=== PATIENT | female | born 1935 | race Two or more races ===

== ENCOUNTER 2018-02-11 14:31 | Day surgery (SDC) | payer MEDICARE ==
[~2018-02-11 14:31] MED LIST: ACET325 PO; AMLO10 PO; ASPI325 PO; ATOR40TA PO; CLOP75 PO; Calcium 600-D1 EACH PO; FOLI400 PO; HYDCHL12.5 PO; LATA.005SO BOTHEYES; LEVFLO500 PO; METO100ER PO; METO50 PO; POLY500 PO; POTCHL10ER PO; RAMI5 PO; RANI150 PO
[2018-02-17] MEDS ORDERED: ERGO400 PO (17:17)
[2018-02-17] MEDS ORDERED: FOLI1 PO (17:19)
[2018-02-17] MEDS ORDERED: TRAM50 PO (17:22)
[2018-02-17] MEDS ORDERED: ALBU90OI6 INH (17:24)
[2018-02-17] MEDS ORDERED: ALPR.5 PO (17:25)
[2018-02-17] MEDS ORDERED: STIOLTO RESPIMAT4 GM INH (17:25)
[2018-02-17] MEDS ORDERED: DIAZ5 PO (17:26)
== END 2018-02-11 22:53 | disposition home or self-care (01) ==
LOC: US 14:31
PROC: BW4FZZZ Ultrasonography of Neck (ICD-10-PCS; principal; 2018-02-11)
DX: J90 Pleural effusion, not elsewhere classified (principal); R91.8 Other nonspecific abnormal finding of lung field
CPT/HCPCS: 76604

== ENCOUNTER → 2018-04-15 | Outpatient (CLI) | payer MEDICARE ==
[~2018-04-15] MED LIST changes: +ALBU90OI6 INH; +ALLO300 PO; +ALPR.5 PO; +CLOT10 MT; +COMPAZINE10 MG PO; +DIAZ5 PO; +ERGO400 PO; +FOLI1 PO; +MAALOX PLUS PO; +MAGOXI400 PO; +MIRALAX17 GM PO; +Milk Of Ma400 MG/5 M PO; +PANT40 PO; +STIOLTO RESPIMAT4 GM INH; +TRAM50 PO; +XARELTO10 MG PO
[2018-04-15 10:35] LABS: Alanine Aminotransfer (ALT/SGP 11 U/L (12-78); Albumin/Globulin Ratio 0.9 (0.8-1.8); Alk Phos 88 U/L (50-136); Anion Gap 12 mmol/L (6-16); Aspartate Aminotrans (AST/SGOT 7 U/L (12-37); Bilirubin, Total 0.6 mg/dL (0.1-1.0); Blood Urea Nitrogen 16 mg/dL (8-24); Bun/Creatinine Ratio 23.5 (12.0-20.0); CO2, Blood 28 mmol/L (21-32); Calcium, Blood 9.2 mg/dL (8.5-10.1); Chloride, Blood 94 mmol/L (98-108); Creatinine, Blood 0.68 mg/dL (0.40-1.00); Globulin, Blood 3.4 g/dL (2.2-4.0); Glomerular Filtration Rate >60 (60-); Glucose, Blood 82 mg/dL (70-99); Magnesium, Blood 1.7 mg/dL (1.6-2.4); Potassium, Blood 3.5 mmol/L (3.5-5.5); Sodium, Blood 134 mmol/L (136-145); Total Protein, Blood 6.4 g/dL (6.4-8.2)
== END | disposition home or self-care (01) ==
LOC: LAB SHORT 09:30 → LAB 09:30
PROVIDERS: Internal Medicine Hematology & Oncology
DX: C34.11 Malignant neoplasm of upper lobe, right bronchus or lung (principal)
CPT/HCPCS: 80053; 83735

== ENCOUNTER 2018-04-24 13:40 | Inpatient (IN) | payer MEDICARE ==
[~2018-04-24] VITALS: Ht 154.9 cm; Wt 54.0 kg
[2018-04-24 14:35] LABS: Hematocrit 18.7 % (33.0-51.0); Hemoglobin 6.3 g/dL (11.5-16.0); Mean Corpuscular HGB 32.1 pg (26.0-34.0); Mean Corpuscular HGB Conc 33.7 g/dL (31.5-36.5); Mean Corpuscular Volume 95 fL (80-100); RDW Coefficient Variation 18.7 % (11.7-14.2); RDW Standard Deviation 64.2 fL (35.1-46.3); Red Blood Cell Count 1.96 M/mm3 (3.80-5.20)
[2018-04-24 14:38] LABS: BASOPHILS ABSOLUTE AUTO 0.01 K/mm3 (0.00-0.23); BASOPHILS PERCENT AUTO 4 % (0-2); EOSINOPHILS PERCENT AUTO 0 % (0-6); IMMATURE GRAN PERCENT AUTO 0 % (0-1); LYMPHOCYTES ABSOLUTE AUTO 0.17 K/mm3 (0.84-5.20); LYMPHOCYTES PERCENT AUTO 71 % (21-46); MONOCYTES ABSOLUTE AUTO 0.03 K/mm3 (0.16-1.47); MONOCYTES PERCENT AUTO 13 % (4-13); Mean Platelet Volume 13.9 fL (9.1-12.4); NEUTROPHILS ABSOLUTE AUTO 0.03 K/mm3 (1.96-9.15); NEUTROPHILS PERCENT AUTO 13 % (41-73); Platelet Count 7 K/mm3 (150-400); White Blood Cell Count 0.24 K/mm3 (4.00-11.30)
[2018-04-24 14:57] LABS: Anion Gap 9 mmol/L (6-16); Blood Urea Nitrogen 19 mg/dL (8-24); Bun/Creatinine Ratio 33.7 (12.0-20.0); CO2, Blood 27 mmol/L (21-32); Calcium, Blood 8.7 mg/dL (8.5-10.1); Chloride, Blood 97 mmol/L (98-108); Creatinine, Blood 0.56 mg/dL (0.40-1.00); Glomerular Filtration Rate >60 (60-); Glucose, Blood 121 mg/dL (70-99); Potassium, Blood 3.3 mmol/L (3.5-5.5); Sodium, Blood 133 mmol/L (136-145)
[2018-04-24 15:32] LABS: RETIC HGB EQUIVALENT 39.5 pg (28.20-36.60); RETICULOCYTE ABSOLUTE 0.005 M/mm3 (0.0200-0.1100); RETICULOCYTE COUNT PERCENT 0.25 % (0.50-2.50)
[2018-04-24 15:40] LABS: Percent Saturation 74.6 % (15.0-50.0)
[2018-04-24 23:47] LABS: Source, Urine Catheter
[2018-04-24 23:49] LABS: Blood, Urine 2+ (Neg); Glucose Qualitative, Urine Neg (Neg); Ketones, Urine 3+ (Neg); Leukocyte Esterase, Urine 1+ (Neg); Nitrite, Urine Neg (Neg); Protein, Urine 2+ (Neg); Urobilinogen, Urine 3+ (Normal); pH, Urine 6.5 (5.0-8.0)
[2018-04-24 23:53] LABS: Appearance, Urine Clear (Clear); Bilirubin, Urine 1+ (Neg); Color, Urine Amber (P-Yellow)
[2018-04-25 00:14] LABS: Bacteria Rare /hpf; Red Blood Cells, Urine 0-2 /hpf (0-2); Squamous Epithelial Cells Rare /hpf (Few); White Blood Cells, Urine 0-2 /hpf (0-5); Yeast/Fungi Urine Mod /hpf
--- NOTE | 2018-04-25 00:32 | NUR ---
started shift with a view score of 5 , called hospitalist, recommended continuing with orders to infuse plasma and blood, gave plasma wide open, continued to monitor for s/sx of reaction to blood, got view of 6 called recommended sending to pcu, sent to icu due to accomadations, report given to icu nurse, charge nurse transfered pt to icu bed 11
[2018-04-25 05:28] LABS: Hematocrit 24.6 % (33.0-51.0); Hemoglobin 8.7 g/dL (11.5-16.0); Mean Corpuscular HGB 31.3 pg (26.0-34.0); Mean Corpuscular HGB Conc 35.4 g/dL (31.5-36.5); Mean Platelet Volume 8.7 fL (9.1-12.4); RDW Coefficient Variation 15.9 % (11.7-14.2); RDW Standard Deviation 48.4 fL (35.1-46.3); Red Blood Cell Count 2.78 M/mm3 (3.80-5.20)
[2018-04-25 05:33] LABS: Mean Corpuscular Volume 89 fL (80-100); Platelet Count 38 K/mm3 (150-400)
[2018-04-25 05:34] LABS: White Blood Cell Count 0.08 K/mm3 (4.00-11.30)
[2018-04-25 05:49] LABS: Anion Gap 10 mmol/L (6-16); Blood Urea Nitrogen 22 mg/dL (8-24); Bun/Creatinine Ratio 36.9 (12.0-20.0); CO2, Blood 25 mmol/L (21-32); Chloride, Blood 98 mmol/L (98-108); Glomerular Filtration Rate >60 (60-); Glucose, Blood 129 mg/dL (70-99); Potassium, Blood 3.1 mmol/L (3.5-5.5); Sodium, Blood 133 mmol/L (136-145)
--- NOTE | 2018-04-25 07:30 | NUR ---
HR 140'S AND 150'S, AFIB, BP 108/61, GAVE LOPRESSOR 2.5 MG IVP, HR REDUCED TO 103-120, BP 95/53
--- NOTE | 2018-04-25 07:40 | NUR ---
[id number]: RECIEVED PT FROM MEDICAL UNIT, AWAKE BUT SOMNOLENT. DENIES PAIN, STATES "I'M SO TIRED, I JUST WANT TO SEEP". FIRST UNIT RBCs COMPLETED, SECOND UNIT UP. BP PROGRESSIVELY TRENDING UP. MONITOR SHOWS AFIB W/ VENTRICULAR RATE 130-150. TEMP DOWN THEN 101.7, TYLENOL 650 MG GIVEN.SECOND UNIT RBCs COMPLETED, LAB DELAYED UNTIL AFTER BLOOD COMPLETE. MAINT. IV RESUMED. 0515: STATUS REPORT TO DR THAKKAR, HR, RHYTHM, BP, TEMP, URINE OUT, ORDERS RECIEVED. TYLENOL 325MG GIVEN PO, MANY BLANKETS REMOVED. TEMP DOWN ON RE-ASSESSMENT. HR, RR REMAIN ELEVATED. BP STABLE. 0635: ABNORMAL WBC COUNT, PLT, VS, URINE, CALLED TO DR THAKKAR, NEW ORDERS RECIEVED.
--- NOTE | 2018-04-25 08:50 | NUR ---
LAB AT BEDSIDE.
--- NOTE | 2018-04-25 08:53 | NUR ---
DR. CROWE AT BEDSIDE FOR EVALUATION.
--- NOTE | 2018-04-25 10:59 | NUR ---
NURSING SUMMARY ALERT AND ORIENTED X4. AFIB WITH HR 140'S AND 150'S THIS MORNING, GAVE LOPRESSOR 2.5 MG IVP, RHYTHM REMAINED IN AFIB, HR REDUCED TO 103-120, AND BP HYPOTENSIVE 87/48, ASUMPTOMATIC. CARDIAC RHYTHM NOW IS AFIB, HR 118, BP 100/55. PATIENT SLEEPING FOR LAST TWO HOURS AND WAKES EASILY TO VOICE. SON AND DAUGHTER AT BEDSIDE, HELPFUL. FAMILY WAS ABLE TO ASSIST ME WITH COMPLETING ADMISSION HISTORY. ADMISSION DOCUMENTATION COMPLETED. PT WAS ON A BRAT DIET THAT SHE DID NOT LIKE, CALLED DR. CROWE AND OBTAINED NEW ORDER FOR REGULAR DIET. LUNGS CLEAR, NON-PRODUCTIVE OCCASSIONAL COUGH. ROOM AIR SATS ABOVE 90%. OH IN PLACE WITH LOW OUTPUT OF AMANDA COLORED URINE. D5 WITH 20K INFUSING AT 100 ML/HR. GAVE MAGNESIUM REPLACEMENT FOR MG = 1.2. GAVE KDUR 20MEQS PO FOR K=3.1, PLUS INFUSING D5 1/2 W/KCL 20 MEQS AT 100 ML/HR. STARTED ON MERREM AND VANCOMYCIN, FIRST DOSES GIVEN OF BOTH ANTIBIOTICS. BRUISE TO LEFT ARM/WRIST FROM FALL AT HOME. INSTRUCTED RE: FALL PRECAUTIONS, USE OF THE CALL LIGHT SYSTEM, AND ALWAYS CALLING NURSING FOR ASSISTANCE OUT OF BED. NEUTROPENIC PRECAUTIONS, WBS 0.08 AND PLATELETS AT 38. RIGHT WRIST 20G INFUSING D5 1/2 NS WITH 20K.
--- NOTE | 2018-04-25 13:00 | NUR ---
CALLED DR. CROWE RE: AFIB, HR 140'S, TOO EARLY TO GIVE IVP LOPRESSOR, BP 90'S/40'S, NEW ORDER FOR TOPROL 12.5 MG PO, DR. CROWE ADVISED ME TO GO AHEAD AND GIVE THE TOPROL WITH BP'S 90'S/47'S. ONCE I WENT INTO THE ROOM TO GIVE THE TOPROL RECHECKED BP'S, RUNNING 70'S/40'S AFTER REPOSITIONING PT TO RIGHT SIDE IN BED. REPOSITIONED PT SUPINE WITH HOB ELEVATED TO 45 DEGREES AND RECHECKED BP, RUNNING 80'S/40'S. PLACED CALL TO DR. CROWE TO REPORT HYPOTENSION, ASYMPTOMATIC, AND URINE OUTPUT AT 125 THUS FAR THIS SHIFT. AWAITING RETURNED CALL.
--- NOTE | 2018-04-25 13:54 | NUR ---
AFIB, HR 122, BP 90/53, STARTED NS 500 CC BOLUS.
--- NOTE | 2018-04-25 18:16 | NUR ---
NURSING SUMMARY UPDATE AT 181 GAVE A SECOND DOSE OF IVP LOPRESSOR 2.5 MG FOR ELEVATED HR 140'S, BP 108/51, AFIB. AFTER GIVING LOPRESSOR, CARDIAC RHYTHM REMAINED AFIB HR 108 BP 105/52. URINE OUTPUT LOW = [address] CROWE AWARE OF LOW URINE OUTPUT AND HYPOTENSION TODAY. PT HAD NS 500 CC BOLUS FOR LOW BP.
[2018-04-26 03:24] LABS: Hematocrit 27.7 % (33.0-51.0); Hemoglobin 9.5 g/dL (11.5-16.0); Mean Corpuscular HGB 31.4 pg (26.0-34.0); Mean Corpuscular HGB Conc 34.3 g/dL (31.5-36.5); Mean Corpuscular Volume 91 fL (80-100); RDW Coefficient Variation 17.6 % (11.7-14.2); RDW Standard Deviation 58.5 fL (35.1-46.3); Red Blood Cell Count 3.03 M/mm3 (3.80-5.20)
[2018-04-26 03:29] LABS: BASOPHILS ABSOLUTE AUTO 0.01 K/mm3 (0.00-0.23); BASOPHILS PERCENT AUTO 3 % (0-2); EOSINOPHILS PERCENT AUTO 0 % (0-6); IMMATURE GRAN ABSOLUTE AUTO 0.02 K/mm3 (0.00-0.10); IMMATURE GRAN PERCENT AUTO 7 % (0-1); LYMPHOCYTES ABSOLUTE AUTO 0.16 K/mm3 (0.84-5.20); LYMPHOCYTES PERCENT AUTO 55 % (21-46); MONOCYTES ABSOLUTE AUTO 0.02 K/mm3 (0.16-1.47); MONOCYTES PERCENT AUTO 7 % (4-13); NEUTROPHILS ABSOLUTE AUTO 0.08 K/mm3 (1.96-9.15); NEUTROPHILS PERCENT AUTO 28 % (41-73)
[2018-04-26 03:30] LABS: Platelet Count 14 K/mm3 (150-400); White Blood Cell Count 0.29 K/mm3 (4.00-11.30)
[2018-04-26 03:43] LABS: Anion Gap 10 mmol/L (6-16); Blood Urea Nitrogen 27 mg/dL (8-24); Bun/Creatinine Ratio 41.6 (12.0-20.0); CO2, Blood 22 mmol/L (21-32); Chloride, Blood 100 mmol/L (98-108); Creatinine, Blood 0.65 mg/dL (0.40-1.00); Glomerular Filtration Rate >60 (60-); Glucose, Blood 77 mg/dL (70-99); Magnesium, Blood 1.6 mg/dL (1.6-2.4); Potassium, Blood 3.9 mmol/L (3.5-5.5); Sodium, Blood 132 mmol/L (136-145)
[2018-04-26 03:49] LABS: BAND PERCENT MAN 9 % (0-8); BASOPHILS PERCENT MAN 0 % (0-2); EOSINOPHILS PERCENT MAN 0 % (0-6); LYMPHOCYTES ABSOLUTE MAN 0.15 K/mm3 (0.84-5.20); LYMPHOCYTES PERCENT MAN 55 % (21-46); METAMYELOCYTE ABSOLUTE MAN 0.02 K/mm3 (0.00-0.00); METAMYELOCYTE PERCENT MAN 7 % (0-0); MONOCYTES ABSOLUTE MAN 0.02 K/mm3 (0.16-1.47); MONOCYTES PERCENT MAN 8 % (4-13); MYELOCYTE ABSOLUTE MAN 0.01 K/mm3 (0.00-0.00); MYELOCYTE PERCENT MAN 4 % (0-0); NEUTROPHILS ABSOLUTE MAN 0.07 K/mm3 (1.96-9.15); PROMYELOCYTE PERCENT MAN 1 % (0-0); SEG NEUTROPHILS PERCENT MAN 16 % (41-73); TOTAL CELLS COUNTED 100
--- NOTE | 2018-04-26 07:22 | NUR ---
[id number]: RESTING COMFORTABLY ON 3.5L O2 (HOME RATE). UP TO TOILET, DESAT TO LOW 80s, FOCUSED PURSED LIP BREATHING DID NOT IMPROVE SPO2. O2 INCREASED TO 6L, PROGRESSIVE RECOVERY, O2 TITRATED TO 3.5L. LATER MOVING IN BED, DESAT MID 80s, O2 TO 4L. BUMPED TO 5L WHEN OOB AGAIN, FASTER RECOVERY. PT AWAKE ALL NIGHT, REFUSED MELATONIN, STATES PREDNISONE GIVES HIM INSOMNIA.
--- NOTE | 2018-04-26 07:39 | NUR ---
[id number]: MONITOR AFIB, RATE 100-110. SBP 95-110. TEMP MAX 100.7, TYLENOL GIVEN, REMAINED < 99. MOIST COUGH W/ MINIMAL PRODUCTION, FLUTTER VALVE USED, PRODUCED VERY LG, THICK, CLEAR SPUTUM. COUGH NOW MOSTLY DRY W/ SCANT PRODUCTION. POSTERIOR LUNG HOROWITZ CLEAR AFTER COUGH. PT C/O PAIN IN "TAILBONE", NO PRESSURE POINT IDENTIFIED BUT GLUTEAL CLEFT REDDENED, MORE SO AFTER REPEATED PERICARE FOR LOOSE STOOLS. CALMSEPTINE BARRIER CREAM APPLIED, PT STATES IMPROVED COMFORT IN AM. NEUTROPENIC ISOLATION PRECAUTIONS MAINTAINED.
--- NOTE | 2018-04-26 08:30 | NUR ---
DR. CROWE AT BEDSIDE FOR EVALUATION.
--- NOTE | 2018-04-26 10:59 | NUR ---
AFIB, HR 140'S AND 150'S, BP 124/84, GAVE METOPROLOL 2.5 MG IVP, HR REDUCED TO 118 - 128, AFIB, BP 100/67. ASYMPTOMAIC. ASSISTED FROM BEDSIDE COMMODE TO CHAIR, BM.
--- NOTE | 2018-04-26 13:25 | NUR ---
NURSING SUMMARY ALERT AND ORIENTED X 4, [facility], FAMILY AT BEDSIDE VERY HELPFUL. AFIB HR 110'S - 120'S MOST OF THE TIME. GAVE A DOSE OF IVP LOPRESSOR 2.5 MG FOR HR 140'S, REDUCED HR TO 110'S - 120'S. VSS. AFEBRILE. LUNGS DIMINISHED, NON-PRODUCTIVE COUGH. DENIES SOB, SATS REMAINING ABOVE 90%. OH IN PLACE DRAINING AMANDA URINE, LOW URINE OUTPUT REPORTED TO DR. CROWE. LR INFUSING AT 75 ML/HR. BM'S X3 TODAY, BROWN/SOFT, CALLS APPROPRIATELY FOR ASSISTANCE ONTO THE BEDPAN OR BEDSIDE COMMODE. ASSISTED OUT OF BED TODAY, SAT IN BEDSIDE CHAIR FOR SEVERAL HOURS. RIGHT WRIST 20G INFUSING LR AT 75 ML/HR.
[2018-04-27 04:27] LABS: Hematocrit 23.7 % (33.0-51.0); Hemoglobin 8.1 g/dL (11.5-16.0); Mean Corpuscular HGB 30.9 pg (26.0-34.0); Mean Corpuscular HGB Conc 34.2 g/dL (31.5-36.5); Mean Corpuscular Volume 91 fL (80-100); RDW Coefficient Variation 17.2 % (11.7-14.2); RDW Standard Deviation 56.4 fL (35.1-46.3); Red Blood Cell Count 2.62 M/mm3 (3.80-5.20)
[2018-04-27 04:36] LABS: Platelet Count 4 K/mm3 (150-400); White Blood Cell Count 0.74 K/mm3 (4.00-11.30)
[2018-04-27 04:46] LABS: Anion Gap 10 mmol/L (6-16); Blood Urea Nitrogen 31 mg/dL (8-24); Bun/Creatinine Ratio 48.9 (12.0-20.0); CO2, Blood 22 mmol/L (21-32); Calcium, Blood 8.2 mg/dL (8.5-10.1); Chloride, Blood 99 mmol/L (98-108); Creatinine, Blood 0.63 mg/dL (0.40-1.00); Glomerular Filtration Rate >60 (60-); Glucose, Blood 118 mg/dL (70-99); Magnesium, Blood 1.6 mg/dL (1.6-2.4); Sodium, Blood 131 mmol/L (136-145)
[2018-04-27 05:26] LABS: BAND PERCENT MAN 16 % (0-8); BASOPHILS PERCENT MAN 0 % (0-2); EOSINOPHILS PERCENT MAN 0 % (0-6); LYMPHOCYTES ABSOLUTE MAN 0.21 K/mm3 (0.84-5.20); LYMPHOCYTES PERCENT MAN 29 % (21-46); MONOCYTES ABSOLUTE MAN 0.04 K/mm3 (0.16-1.47); MONOCYTES PERCENT MAN 6 % (4-13); NEUTROPHILS ABSOLUTE MAN 0.47 K/mm3 (1.96-9.15); SEG NEUTROPHILS PERCENT MAN 48 % (41-73); TOTAL CELLS COUNTED 85
--- NOTE | 2018-04-27 07:33 | NUR ---
[id number]: 3 THICK LIQUID STOOLS W/GELLATENOUS TRAITS. SPEC SENT FOR C-DIFF, REPORTED NEGATIVE. ZOFRAN 4 MG GIVEN TWICE FOR C/O NAUSEA W/STATED TOTAL RELIEF OF SYMPTOMS 30 MIN AFTER EACH DOSE. C/O CONTINUOUS PAIN TAILBONE, POORLY RELIEVED W/ TYLENOL, REPORTED TO DR CORCORAN, TRAMADOL 50MG GIVEN, PT SLEEPING SOUNDLY FOR SEVERAL HRS, PAIN STILL MOSTLY RELIEVED IN AM. AFIB W/VENTRICULAR RATE 120-135, SMALL HR DECREASE TO 115-130 AFTER METOPROLOL 2.5MG IV. HR CONSIST > 120 IN AM, METOPROLOL HELD DUE TO SBP 85. WBC= 0.74, PLT CT= 4, LOW URINE OUT REPORTED TO DR SMITH IN AM. 1 UNIT PLATELETS ORDERED & HUNG.
[2018-04-27 08:27] LABS: Vancomycin, Trough 8.9 ug/mL (5.0-10.0)
--- NOTE | 2018-04-27 09:56 | NUR ---
IV ACCESS PT HAS A 20G IN HER RIGHT WRIST. PT IS RECEIVINF VANCOMYSCIN. TALKED WITH THE POWER GLIDE NURSE AND ASKED IF IT WAS APPROPRAITE FOR A POWER GLIDE D/T PT LOW PLATELET COUNT. WE DECIDED THAT SEEING HOW THE PLATELET INFUSION WAS JUST COMPLETEING THAT IT WOULD BE A GOOD TIME FOR PLACMENT. PT RELATED THAT SHE HAS HAD ONE BEFORE. SON AGREEABLE WELL. ONCE POWER GLIDE PLACED WILL INFUSION ANTIBIOTICS. CONTINUE POT.
--- NOTE | 2018-04-27 13:10 | NUR ---
NOTE PT RESTING QUIETLY. AFIB. ORDERED EKG COMPLETED PER DR CROWE. PT HAS A SORE SACRUM. ULTRAM EFFECTIVE FOR PAIN. PT REQUESTING TO REPOSITION FREQUENTLY. PLATELET INFUSION COMPLETED WITH OUT DIFFICULTY. FAMILY AT BEDSIDE. PT REFUSED MORNING ADL'S. AFTER HER BUSY MORNING SHE WANTED TO NAP. FAMILY ASKED TO LET HER SLEEP THROUGH LUNCH. MEDICATED X1 WITH ZOFRAN PRIOR TO LUNCH FOR NAUSEA. FAMILY BRINGING IN BATTERIES FOR PT HEARING AIDES. CONTINUE POT.
--- NOTE | 2018-04-27 13:25 | NUR ---
STIOLTO INH. FAMILY BROUGHT IN PT INHALER FROM HOME. CALLED PHARMACY. LABELED WITH PT LABEL ON INHALER. PLACED IN GREEN BAG AND TUBED TO PHARMACY. NOTIFIED R/T. CONTINUE POT.
--- NOTE | 2018-04-27 16:52 | NUR ---
EVENING NOTE DR CROWE ORDERED CARDIZEM WITH SBP PARAMETERS. PT SBP 81 HR 141. CALLED Charisma GODOY TO ASK HIM WHAT HE WANTED TO DO. HE GAVE ORDERS FOR LR D/T LOW URINE OUTPT STILL AND DIGOXIN LOAD FOR HR CONTROL. PT SITTINGUP IN CHAIR SIPPING ON CHICKEN BROTH. MEDICATED WITH ZOFRAN X2 FOR NAUSEA. PT HAS CHRONIC NAUSEA. NO EMESIS TODAY. MEDCIATED WITH ULTRAM X2 FOR SACRAL DISCOMFORT. EFFECTIVE. PT WAS ABLE TO NAP SEVERAL TIMES TODAY. FAMILY AT BEDSIDE. CONTINUE POT.
--- NOTE | 2018-04-27 18:19 | NUR ---
Bedside report received from Stephanie Reich at this time.
--- NOTE | 2018-04-27 18:30 | NUR ---
[facility] report given to debra knott. pt and family aware of transfer. Awaiting to hear when room is ready for her. continuepot.
--- NOTE | 2018-04-28 00:21 | NUR ---
ASSUMED CARE AT 1900. [place] AND ORIENTED W/ DISCUSSION OF CONDITION AND WHEREABOUTS .DENIES PAIN. REPORTS SORE LT HIP WHEN PALPATED. SANTIAGO CARE/CATH CARE. NO REDNESS OR SKIN BREAKDOWN.JAUNDICE/ PALE SKIN COLOR APPEARANCE.REPORTS A LITTLE NAUSEA AND ALWAYS FALLS OFF TO SLEEP . FINALLY ZOFAN GIVEN WHEN AWAKENED AND QUESTIONED .ALWAYS A LITTLE QUEEZY PER REPORT. CRACKERS AND H2O SIPS / ..UNABLE TO FLUSH POWER GLILDE OF RT UPPER ARM. DCD. 15 MIN PRESSURE HELD AT SITE . STILL SOME BRUISING NOTED .PRESSURE DSG., ANASARCA . WHOLE RT ARM DEPOSITS OF EDEMA. SOME DEPENDENT. AF RANGE 90-120 POST 2ND DOSE OF DIG. TURNED Q 2 HR
--- NOTE | 2018-04-28 02:42 | NUR ---
ATTEMPTED CRACKER AND MILD RETCHING W/ COUGH . MOIST COUGH OCCASIONALLY THRU NOC.FEW SIPS H2O AND NO FURTHER CRACKER BITES. ZOFRAN GIVEN,REPORTS NAUSEA NEVER COMPLETELY GONE AND REPORTS THIS WHEN AWAKENED TO TURN OR OTHER PROCEDURES . NEW POWER GLIDE JUST PUT IN, KASSANDRA. TOLERATED WELL. NO STOMACH UPSET DURING PROCEDURE
[2018-04-28 05:05] LABS: BASOPHILS ABSOLUTE AUTO 0.02 K/mm3 (0.00-0.23); BASOPHILS PERCENT AUTO 2 % (0-2); Hematocrit 22.3 % (33.0-51.0); Hemoglobin 7.5 g/dL (11.5-16.0); Mean Corpuscular HGB 31.1 pg (26.0-34.0); Mean Corpuscular HGB Conc 33.6 g/dL (31.5-36.5); Mean Corpuscular Volume 93 fL (80-100); Mean Platelet Volume 9.9 fL (9.1-12.4); RDW Coefficient Variation 17.2 % (11.7-14.2); RDW Standard Deviation 57.6 fL (35.1-46.3); Red Blood Cell Count 2.41 M/mm3 (3.80-5.20); White Blood Cell Count 1.37 K/mm3 (4.00-11.30)
[2018-04-28 05:09] LABS: EOSINOPHILS PERCENT AUTO 0 % (0-6); IMMATURE GRAN PERCENT AUTO 15 % (0-1); LYMPHOCYTES ABSOLUTE AUTO 0.17 K/mm3 (0.84-5.20); LYMPHOCYTES PERCENT AUTO 12 % (21-46); MONOCYTES ABSOLUTE AUTO 0.07 K/mm3 (0.16-1.47); MONOCYTES PERCENT AUTO 5 % (4-13); NEUTROPHILS ABSOLUTE AUTO 0.91 K/mm3 (1.96-9.15); NEUTROPHILS PERCENT AUTO 66 % (41-73)
[2018-04-28 05:10] LABS: Platelet Count 17 K/mm3 (150-400)
[2018-04-28 05:20] LABS: Anion Gap 8 mmol/L (6-16); Blood Urea Nitrogen 37 mg/dL (8-24); Bun/Creatinine Ratio 51.3 (12.0-20.0); CO2, Blood 25 mmol/L (21-32); Calcium, Blood 8.4 mg/dL (8.5-10.1); Chloride, Blood 100 mmol/L (98-108); Creatinine, Blood 0.72 mg/dL (0.40-1.00); Glomerular Filtration Rate >60 (60-); Glucose, Blood 87 mg/dL (70-99); Magnesium, Blood 1.5 mg/dL (1.6-2.4); Potassium, Blood 4.1 mmol/L (3.5-5.5); Sodium, Blood 133 mmol/L (136-145)
[2018-04-28 05:25] LABS: BAND PERCENT MAN 19 % (0-8); BASOPHILS PERCENT MAN 0 % (0-2); EOSINOPHILS PERCENT MAN 0 % (0-6); LYMPHOCYTES ABSOLUTE MAN 0.17 K/mm3 (0.84-5.20); LYMPHOCYTES PERCENT MAN 13 % (21-46); METAMYELOCYTE ABSOLUTE MAN 0.01 K/mm3 (0.00-0.00); METAMYELOCYTE PERCENT MAN 1 % (0-0); MONOCYTES ABSOLUTE MAN 0.04 K/mm3 (0.16-1.47); MONOCYTES PERCENT MAN 3 % (4-13); NEUTROPHILS ABSOLUTE MAN 1.13 K/mm3 (1.96-9.15); SEG NEUTROPHILS PERCENT MAN 64 % (41-73); TOTAL CELLS COUNTED 100
--- NOTE | 2018-04-28 06:48 | NUR ---
SHIFT SUMMARY. KEPT UP ON ZOFRAN PT IS REPORTING LESS AFFECTED BY NAUSEANOW BUT DOES NOT WANT TO TAKE AM PILL AND NOT WANTING TO DRINK ANYTHING EXCEPT A FEW SIPS OF H2O THRU NOC. HR 90-110 AF, CONT TO DENY PAIN. NO EMESIS ALL NOC. PLACED CALL TO DR SMITH AT 0515 AND REPORTED ON VOICE MAIL CRITICAL LAB RESULT AND STAFF TO DISCUSS OTHER LAB RESULTS WHEN MD RETURNS CALL. NEVER CALLED BACK.
--- NOTE | 2018-04-28 07:50 | NUR ---
C/O nausea, dry heaves without emesis. Lying on right side, states comfortable in that position and does not want repositioning yet. Son at bedside, attentive and supportive.
--- NOTE | 2018-04-28 12:16 | NUR ---
Echocardiogram completed.
--- NOTE | 2018-04-28 17:39 | NUR ---
Pt woke up from a "good nap" per her daughter who was here with her all afternoon, as I entered the room. The pt c/o feeling nauseated, hot, feeling anxious. Her daughter was reassuring her. The pt was medicated for nausea, and for anxiety. The pt then started to say that she was having difficulty breathing. SpO2 66% on room air, whereas the pt was 90+% on room air throughout the day. Lung sounds are more coarse than they were this morning, more on the left side than the right. Pt was placed on oxygen with minimal improvement. Respiratory therapy called and pt was put on 100% non rebreather mask, and spo2 began to improve to 80%. IV lasix given per Dr. Bunch's orders. CXR was done. spo2 improved to 91% and the pt began to say that she was feeling better. The pt now is 96% on 100% non rebreather mask, discussing code status with Irma, telegraph mechanic, and with one of the pt's daughters. Urine output 100cc since adminstration of lasix. Pt states she is feeling better. Dr. Bunch called and new orders were received. Res
--- NOTE | 2018-04-28 18:33 | NUR ---
Pt was changed to nasal cannula for eating some soup. spo2 99% on 100% NRB mask. Now 99% on 5 l/min nasal cannula. Her daughters at her bedside. Daughter is tearful, states she is afraid of losing her mother. Provided reassurance and emotional support.
--- NOTE | 2018-04-28 18:45 | NUR ---
The pt is alert, oriented, very hard of hearing, but cooperative and had occasional c/o pain in her "tailbone" throughout the shift. The pain was relieved with repositioning. Pt received 1 uPRBCs earlier today, and this evening developed anxiety, nausea, and dyspnea with hypoxia. Treated with IV lasix per Dr Bunch and 100% NRB mask. Two hours later she is now resting quietly with her eyes closed, has put out 100 cc of dark yellow urine, maintaining SPO2 of 98% on 5 l/min n.c. delivery, respirations even and unlabored.
--- NOTE | 2018-04-28 19:18 | NUR ---
Asked by staff to meet with pt/family to complete POLST. Mrs. Suero appears quite frail, but was mentally clear and able to hold conversation. Her two dtrs were at bedside and tearful. I carefully explained the benefit and purpose of POLST. We then discused each option in detail. Mrs. Suero would like CPR performed "a couple times." When asked to clarify, she wanted an attempt made but "not for very long." She does not want to be intubated, and if she requires intubation to sustain life, she would like to be made comfrotable and allowed to naturally. She would, however, like CPap, bi-pap and all forms of medications. She does not want tube feeding. She signed POLST in presence of dtr. It is now awaiting urmila's signature. Met with dtrs outside of room to provide comfort through hugs and gentle words od encouragement. I will remain available.
--- NOTE | 2018-04-28 19:23 | NUR ---
Bedside report given to Angelia Gonsales. The pt's daughters are at the bedside. Pt is on nc. 5l/min delivery, spo2 98%. Oxygen weaned down to 4 l/min at time of bedside report.
--- NOTE | 2018-04-28 19:45 | NUR ---
ASSUMED CARE PT SEELING IN ROOM WITH FAMILY AT BEDSIDE. PER DAY SHIFT PT HAS BEEN VERY TIRED AND SLEEPY T/O AFTERNOON. RECEIVED UNIT OF PRBC'S TODAY D/T LOW H/H AND WBC. PT ALSO RECEIVED MULTIPLE MEDICATIONS VIA IV AND LR. DAY SHIFT NOTED INCREASEC CRACKLES IN LUNGS, PT MEDICTED WITH LASIX AND STOPPED LR D/T MULTIPLE INFUSIONS. WILL REEVALUATE WITH PROVIDER IN AM FOR CONTINUATION OF LR. PT IS CONFUSED AT TIMES. NEEDS REORIENTED UPON WAKING TO WHERE SHE IS. NEUTROPENIC PRECAUTIONS IN PLACE FOR RECENT CHEMO. CALL LIGHT IS IN REACH.
[2018-04-29 04:12] LABS: BASOPHILS ABSOLUTE AUTO 0.05 K/mm3 (0.00-0.23); BASOPHILS PERCENT AUTO 2 % (0-2); Hematocrit 26.4 % (33.0-51.0); Hemoglobin 9.1 g/dL (11.5-16.0); Mean Corpuscular HGB 30.3 pg (26.0-34.0); Mean Corpuscular HGB Conc 34.5 g/dL (31.5-36.5); RDW Coefficient Variation 16.9 % (11.7-14.2); RDW Standard Deviation 53.8 fL (35.1-46.3); White Blood Cell Count 3.13 K/mm3 (4.00-11.30)
[2018-04-29 04:14] LABS: EOSINOPHILS PERCENT AUTO 0 % (0-6); IMMATURE GRAN ABSOLUTE AUTO 0.36 K/mm3 (0.00-0.10); IMMATURE GRAN PERCENT AUTO 12 % (0-1); LYMPHOCYTES PERCENT AUTO 6 % (21-46); MONOCYTES ABSOLUTE AUTO 0.11 K/mm3 (0.16-1.47); MONOCYTES PERCENT AUTO 4 % (4-13); Mean Corpuscular Volume 88 fL (80-100); NEUTROPHILS ABSOLUTE AUTO 2.41 K/mm3 (1.96-9.15); NEUTROPHILS PERCENT AUTO 77 % (41-73)
[2018-04-29 04:15] LABS: Platelet Count 4 K/mm3 (150-400)
[2018-04-29 05:17] LABS: BAND PERCENT MAN 11 % (0-8); BASOPHILS PERCENT MAN 0 % (0-2); EOSINOPHILS PERCENT MAN 0 % (0-6); LYMPHOCYTES ABSOLUTE MAN 0.25 K/mm3 (0.84-5.20); LYMPHOCYTES PERCENT MAN 8 % (21-46); METAMYELOCYTE ABSOLUTE MAN 0.03 K/mm3 (0.00-0.00); METAMYELOCYTE PERCENT MAN 1 % (0-0); MONOCYTES ABSOLUTE MAN 0.18 K/mm3 (0.16-1.47); MONOCYTES PERCENT MAN 6 % (4-13); NEUTROPHILS ABSOLUTE MAN 2.66 K/mm3 (1.96-9.15); SEG NEUTROPHILS PERCENT MAN 74 % (41-73); TOTAL CELLS COUNTED 100
--- NOTE | 2018-04-29 05:22 | NUR ---
SHIFT SUMMARY PT SLEEPING IN ROOM CONFORTABLY. NO ACUTE CHANGES IN STATUS T/O SHIFT. PT HAS SLEPT WELL T/O NIGHT. WAKES TO VERBAL. SOME CONFUSION UPON WAKING, NEEDS REORIENTING TO TIME AND PLACE. DENIES ANY PAIN. DENIES N/V. RESP EVEN UNLABORED 3L NC IN PLACE SATS >95%. SKIN IS PWD. CALL LIGHT IS IN REACH.
[2018-04-29 08:33] LABS: Vancomycin, Trough 15.7 ug/mL (5.0-10.0)
--- NOTE | 2018-04-29 16:20 | NUR ---
Pt is not responsive at this time, family tells me she is sleeping soundly. Subha, daughter, reports that she is POA. She is concerned that her mother is worsening and that her siblings are not going to let thier mother go without suffering. Subha reports that a POLST was filled out last night, she is now ready to change that document to DNR, instead of allowing chest compressions. She will get no intubation, they had decided to make her DNI yesterday. Hard Choices for [employer] booklet given, also Considering Comfort Care given. She states that her siblings do not want this information, but she is able to handle it. Her sister, Masoud, is in severe denial and will not even consider that this is the patient's end of life. Card given, will follow up with family tomorrow and as needed for support, information.
--- NOTE | 2018-04-29 16:41 | NUR ---
Met with Shameka Mascorro's dtr, outside of room. We spoke at length about her mom's decline. Aleksandra appears to grasp that her mom is nearing end-of-life. She also believes that her mom did not understand the implications of saying 'yes' to CPR yesterday. Subha is adamant that POC/code status must be her mother's decision, and she would like staff to re-address this with pt. Unfortunately, Shameka is much less lucid and aware today. Second dtr, Masoud, was present in room and remains tearful and inconsolable. Subha asked me to provide one-on-one christian counselor to Masoud, outside of room. Masoud refused, but allowed me to hold her while she wept at bedside. It is clear these adult children want to honor their mother's wishes. They do not want to make decisions on her behalf. I will continue to see family/pt as schedule permits.
--- NOTE | 2018-04-29 19:03 | NUR ---
Asked to provide prayer for pt and family after decision made for DNR. Shameka appears quite frail and is minimally responsive. Dtr, Subha, her spouse and brother at bedside. They are tearful but appropriate. Shameka agreed to prayer. Prayed for a peaceful transition. Family appeared comforted. I will remain available.
--- NOTE | 2018-04-29 19:43 | NUR ---
END OF SHIFT PT HAS NEED MORE OXYGEN, PT IS ALERT AT TIME, PT FAMILY IS EDUCATED ON THE DISEASE PROCESS, PT FAMILY DECIED TO GO TO DNR WITH AWAITING RESULTS
[2018-04-29 19:54] LABS: BASOPHILS ABSOLUTE AUTO 0.06 K/mm3 (0.00-0.23); BASOPHILS PERCENT AUTO 1 % (0-2); Hematocrit 26.7 % (33.0-51.0); Hemoglobin 9.1 g/dL (11.5-16.0); LYMPHOCYTES ABSOLUTE AUTO 0.25 K/mm3 (0.84-5.20); LYMPHOCYTES PERCENT AUTO 6 % (21-46); MONOCYTES ABSOLUTE AUTO 0.16 K/mm3 (0.16-1.47); MONOCYTES PERCENT AUTO 4 % (4-13); Mean Corpuscular HGB 30.5 pg (26.0-34.0); Mean Corpuscular HGB Conc 34.1 g/dL (31.5-36.5); Mean Corpuscular Volume 90 fL (80-100); Mean Platelet Volume 9.8 fL (9.1-12.4); RDW Coefficient Variation 17.1 % (11.7-14.2); RDW Standard Deviation 55.1 fL (35.1-46.3); Red Blood Cell Count 2.98 M/mm3 (3.80-5.20); White Blood Cell Count 4.44 K/mm3 (4.00-11.30)
[2018-04-29 20:07] LABS: EOSINOPHILS ABSOLUTE AUTO 0.01 K/mm3 (0.00-0.68); EOSINOPHILS PERCENT AUTO 0 % (0-6); IMMATURE GRAN PERCENT AUTO 9 % (0-1); NEUTROPHILS ABSOLUTE AUTO 3.56 K/mm3 (1.96-9.15); NEUTROPHILS PERCENT AUTO 80 % (41-73)
[2018-04-29 20:08] LABS: Platelet Count 37 K/mm3 (150-400)
[2018-04-29 21:57] LABS: Magnesium, Blood 1.6 mg/dL (1.6-2.4); Potassium, Blood 3.4 mmol/L (3.5-5.5)
--- NOTE | 2018-04-29 22:57 | NUR ---
ASSUMED CARE PT SLEEPING IN ROOM. PER DAY SHIFT PT HAD A SIGNIFICANT DELINCE IN MENTATION AND OXYGENATION TODAY. PT WAS ON RA O2 THIS AM, NOW ON 10L O2 VIA HI-FLOW CANNULA. PT IS VERY DROWSY, HARD TO AWAKEN WITH VERBAL. PT WAS VERY PAINFUL DURING DAY AND WAS MEDICATED PER EMAR FOR COMFORT, SEE EMAR. PT HAS SINCE BEEN VERY LETHARGIC AND HARD TO AWAKEN. BEEN UNABLE TO TAKE ORAL MEDICATIONS D/T LETHARGY. LS CRACKLES T/O RESP UNEVEN AND SLIGHTLY LABORED. SATS >92%. MANY FAMILY MEMBERS AT BEDSIDE. CALL LIGHT IS WITHIN REACH. PT FLOATED ON MULTIPLE PILLOWS FOR COMFORT D/T PAINFUL COCCYX. WILL CONTINUE TO MONITOR FOR PAIN AND COMFORT.
--- NOTE | 2018-04-30 00:52 | NUR ---
VTACH RUN PT HAD A 15 SECOND LONG RUN OF VTACH. UPON ASSESSMENT PT HAD NO CHANGES IN STATUS. REMAINED COMFORTABLE IN ROOM SLEEPING.
[2018-04-30 04:35] LABS: Anion Gap 8 mmol/L (6-16); Blood Urea Nitrogen 24 mg/dL (8-24); Bun/Creatinine Ratio 37.8 (12.0-20.0); CO2, Blood 31 mmol/L (21-32); Calcium, Blood 8.5 mg/dL (8.5-10.1); Chloride, Blood 98 mmol/L (98-108); Creatinine, Blood 0.64 mg/dL (0.40-1.00); Glomerular Filtration Rate >60 (60-); Glucose, Blood 84 mg/dL (70-99); Potassium, Blood 3.2 mmol/L (3.5-5.5); Sodium, Blood 137 mmol/L (136-145)
--- NOTE | 2018-04-30 05:51 | NUR ---
SHIFT SUMMARY PT SLEEPING COMFORTABLY IN ROOM. PT DID HAVE A RUN OF VTACH AT APPROX 0100. AND A RUN OF TACHYCARDIA AT 0500 WHICH RESOLVED ON IT'S OWN. PT HAS BEEN UNABLE TO TAKE PO MEDS SINCE EARLY AFTERNOON YESTERDAY, INCLUDING PO CARDIZEM FOR RATE CONTROL. AWAITING CALL FROM PROVIDER FOR IV CARDIZEM IF AMS CONTINUES. FAMILY AT BEDSIDE. CALL LIGHT IN REACH.
--- NOTE | 2018-04-30 18:26 | NUR ---
END OF SHIFT PT HAS HAD NO CHANGES, THE FAMILY AGREED WITH THE COMFORT CARE, PT HAS NO PAIN, PT
--- NOTE | 2018-04-30 19:30 | NUR ---
ASSUMED CARE PT MOVED TO COMFORT CARE AT END OF SHIFT. PT IS SLEEPING IN ROOM WITH MULTIPLE FAMILY MEMBERS AT BEDSIDE. PT WAS MEDICATED AT SHIFT CHANGE FOR PAIN. APPEARS TO BE PAIN FREE AT THIS TIME. FAMILY REQUESTS SOMETHING TO HELP CALM PT. WILL MEDICATE PER EMAR. CALL LIGHT IS IN REACH. FAMILY EDUCATED ON CALLING FOR NEEDS. WILL CONT TO MONITOR FOR PT COMFORT.
--- NOTE | 2018-04-30 21:47 | NUR ---
PT REPOSITIONED AT THIS TIME FOR COMFORT. PILLOWS UNDER PT TO FLOAT HIPS FOR PAINFUL COCCYX. PT APPEARSMORE COMFORTABLE AT THIS TIME. CONTINUES TO SLEEP. FACE SCALE 2.
--- NOTE | 2018-05-01 05:38 | NUR ---
SHIFT SUMMARY PT HAS REMAINED ASLEEP T/O SHIFT. DOES NOT WAKE TO VERBAL STIMULI. PT WILL OCCASIONALLY MOAN IN PAIN. PT HAS BEEN MEDICATED FOR PAIN PER EMAR FOR COMFORT. FAMILY REMAINED IN ROOM FOR MOST OF SHIFT. ONE FAMILY MEMBER AT BEDSIDE T/O NIGHT. PT HAS BEEN REPOSITIONED FOR COMFORT AND PER FAMILY REQUEST O2 SAT REMAINS ON FINGER. TELE WAS REMOVED. CALL LIGHT IS IN REACH FOR FAMILY MEMBERS.
--- NOTE | 2018-05-01 09:00 | NUR ---
pt has transfered to medical via bed, report given to recieving nurse. comfort cart and all belongings went with her. family aware.
--- NOTE | 2018-05-01 20:04 | NUR ---
SUMM- PT HAS SEMI COMATOSE ON COMFORT CARE. COMFORTABLE EXCEPT WHEN MOVING. MEDICATED X3 TODAY WITH ROXONOL WHICH SEEMED TO BE EFFECTIVE PT APPEARED BREATHING COMFORTABLE RR<16, EYES CLOSED. HIGH FLOW O2 10L. ORAL CARE FOR SECRETIONS PRN AND MOUTH MOISTERIZER. LARGE FAMILY IN AND OUT ALL DAY. SEEM TO HAVE GOOD SUPPORT FOR EACHOTHER.
--- NOTE | 2018-05-02 06:23 | NUR ---
SHIFT SUMMARY PT IS A 82 Y/O W, CURRENTLY COMFORT CARE. SHE IS NONRESPONSIVE AT THIS TIME. PT APPEARED TO REST COMFORTABLY DURING THE NIGHT WITH NO S/S OF PAIN OR SHORTNESS OF BREATH. NO ACUTE CHANGES IN PT CONDITION NOTED. PT'S DAUGHTER REMAINED IN THE ROOM THROUGH THE NIGHT. WILL CONTINUE TO MONITOR AND TREAT PER EMAR.
--- NOTE | 2018-05-02 08:30 | NUR ---
FAMILY AT BEDSIDE AND REQUESTING PT NOT BE MOVED AT THIS TIME. SON JESSICA CAME TO VISIT FOR SHORT TIME. RESP AT THIS TIME VERY SHALLOW
--- NOTE | 2018-05-02 15:20 | NUR ---
PT FOUND WITH NO RESP OR HEART RATE. FAMILY AT BEDSIDE. MD NOTIFIED.
--- NOTE | 2018-05-02 16:23 | NUR ---
Provided prayer of comendation with family at bedside. Offered gentle bereavement cosmetic counselor and affirmation of love and devotion. Family tearful, but appropriate. [facility] has been selected for arrangements. Family expressed gratitude for compassionate care by [facility] staff.
--- NOTE | 2018-05-02 18:10 | NUR ---
gabriel from [facility] here to pick pt up.
== END 2018-05-02 15:15 | DRG 180 ==
LOC: ER 13:40 → MEDS 16:14 → ICUW 16:14 → MEDS 18:45 → ICUW 22:53 → PCU 04-27 18:49 → MEDS 05-01 09:28 → ENPENDDIS 05-02 15:52
PROVIDERS: Emergency Medicine; Internal Medicine; Internal Medicine Hematology & Oncology; Nurse Practitioner Acute Care; Physician Assistant; ADMIT Internal Medicine
PROC: 30233N1 Transfusion of Nonautologous Red Blood Cells into Peripheral Vein, Percutaneous Approach (ICD-10-PCS; principal; 2018-04-24)
DX: C34.90 Malignant neoplasm of unspecified part of unspecified bronchus or lung (principal); J96.01 Acute respiratory failure with hypoxia; J69.0 Pneumonitis due to inhalation of food and vomit; G93.41 Metabolic encephalopathy; D61.810 Antineoplastic chemotherapy induced pancytopenia; E22.2 Syndrome of inappropriate secretion of antidiuretic hormone; I47.2 Ventricular tachycardia; D63.0 Anemia in neoplastic disease; E78.5 Hyperlipidemia, unspecified; I10 Essential (primary) hypertension; I25.10 Atherosclerotic heart disease of native coronary artery without angina pectoris; J44.9 Chronic obstructive pulmonary disease, unspecified; K21.9 Gastro-esophageal reflux disease without esophagitis; Z86.718 Personal history of other venous thrombosis and embolism; Z91.81 History of falling; Z92.21 Personal history of antineoplastic chemotherapy; E87.6 Hypokalemia; R62.7 Adult failure to thrive; I71.4 Abdominal aortic aneurysm, without rupture; Z87.891 Personal history of nicotine dependence
CPT/HCPCS: 36415; 36430; 71045; 80048; 80202; 81001; 82607; 82746; 83540; 83550; 83605; 83735; 83880; 84132; 85025; 85045; 86850; 86900; 86901; 86923; 87040; 87086; 87493; 93005; 93010; 93306; 94640; 94760; 97110; 97162; 97530; 99284-25; C1751; J1160; J1940; J2060; J2185; J2270; J2405; J3370; J3475; J3480; J7030; J7040; J7050; J7120; P9016; P9035; P9037; P9040